=== PATIENT | female | born 1985 | race Caucasian/White ===

== ENCOUNTER 2018-04-29 20:20 | Day surgery (SDC) | payer BC ==
[2018-04-29 21:29] LABS: Bilirubin Negative (Negative); Blood, Urine Negative (Negative); Clarity CLEAR (Clear); Glucose, Urine (Dipstick) Negative (Negative); Leukocyte Negative (Negative); Nitrite Negative (Negative); Protein, Urine (Dipstick) Negative (Neg-Trace); Specific Gravity, Urine 1.008 (1.002-1.036); Urobilinogen 0.2 mg/dL (0.2-1.0)
[2018-04-29 21:31] LABS: Bacteria/HPF None Seen HPF (None Seen); Hyaline Casts/LPF 0-3 HYALINE CAST LPF (0-3 Hyaline); Pathc Cast-AUWi Flag 0.14 (0-2.49); Squamous Epithelial 0-3 HPF (0-3); WBC/HPF 0-3 HPF (0-3)
[2018-04-29 21:35] LABS: Amnisure Internal Control QC ACCEPTABLE (ACCEPTABLE); Amnisure Test No Membranes Rupture (No Rupture)
[2018-04-29 21:42] VITALS: BP 120/80; TEMP 98.5
--- NOTE | 2018-04-29 21:46 | PDOC.LDHP ---
Labor and Delivery H&P Chief complaint: contractions HPI: 33 y/o G1 at 34w2d, patient of Dr. Young, presents with low back pain, ctx, and ?lof after getting out of a pool today. Denies VB or decreased FM. ROS neg for HEENT, cv, pulm, gi, gu, neuro, psych, skin, musculoskeletal or constitutional symptoms other than mentioned above. OB History Details: First pregancy Current complications: none Past Medical History: None Current medications: pre- vitamins Previous surgical history: none Allergies/Adverse Reactions: Allergies Allergy/AdvReac Type Severity Reaction Status Date / Time Cephalosporins Allergy Verified 04/29/18 21:45 Social history: none - Physical Exam Vital signs reviewed and normal: yes General: NAD, resting Lungs: nonlabored breathing Abdomen: gravid Extremeties: no edema FHT: category 1 (140s, mod variability, + accels, no decels) [place] contractions every: irregular - Vaginal Exam cm dilated: 0 (unchanged after 1 hour. Ctx spaced out.) Effacement: 0% Station: -3 - Assessment 33 y/o G1 at 34w2d with no e/o PTL or SROM. UA wnl. status reassuring with reactive NST. - Plan -: D/c home with precautions. Advised to keep all appointments and continue daily activity counts.
[2018-04-29] MEDS ORDERED: Lactated Ringer's 1,000 ML IV SCH (22:00)
== END 2018-04-29 22:45 | disposition home or self-care (01) ==
LOC: L&D/OP 20:20
PROVIDERS: ATTEND Obstetrics & Gynecology
DX: O47.03 False labor before 37 completed weeks of gestation, third trimester (principal); Z3A.34 34 weeks gestation of pregnancy; Z88.8 Allergy status to other drugs, medicaments and biological substances
CPT/HCPCS: 81001; 84112; 87480; 87510; 87660; 99285

== ENCOUNTER 2018-06-12 17:00 | Inpatient (IN) | payer BC, OTHER ==
[2018-06-12 18:09] VITALS: BMI 29.3
[2018-06-12] MEDS ORDERED: HYDROcodone/Acetaminophen 5/325 mg Tablet PO PRN ×2 (18:47)
[2018-06-12] MEDS ORDERED: Diphenoxylate HCl/Atropine Tablet PO PRN ×2 (18:47)
[2018-06-12] MEDS ORDERED: NS / Oxytocin 40 units/1000ml 1,000 ML IV PRN (18:47)
[2018-06-12] MEDS ORDERED: Lidocaine 1% (PF) 30 ML VIAL SC PRN (18:47)
[2018-06-12] MEDS ORDERED: Ondansetron HCl/PF 4 MG/2 ML Vial IVP PRN (18:47)
[2018-06-12] MEDS ORDERED: Promethazine HCl 25 MG/ML VIAL IM PRN (18:47)
[2018-06-12] MEDS ORDERED: Misoprostol 200 MCG TAB PR PRN (18:47)
[2018-06-12] MEDS ORDERED: Ibuprofen 800 MG TAB PO PRN (18:47)
[2018-06-12] MEDS ORDERED: Zolpidem Tartrate 5 MG TAB PO PRN (18:47)
[2018-06-12] MEDS ORDERED: Carboprost 250 MCG/ML AMP IM PRN (18:47)
--- NOTE | 2018-06-12 18:54 | PDOC.LDHP ---
Labor and Delivery H&P Chief complaint: scheduled induction Current gestational age (weeks): 40 Due date: 06/12/18 Grav: 1 Para: 0 Current complications: gestational hypertension Abnormal US findings: No Current medications: none Allergies/Adverse Reactions: Allergies Allergy/AdvReac Type Severity Reaction Status Date / Time Cephalosporins Allergy Verified 04/29/18 21:45 - Physical Exam Vital signs reviewed and normal: yes General: NAD Heart: RRR Lungs: CTAB Abdomen: gravid Extremeties: no edema FHT: category 1 - Assessment L&D Assessment: medically indicated induction - Plan Plan: admit to L&D, labor augmentation if indicated
[2018-06-12 18:57] LABS: Hemoglobin 12.7 g/dL (12.0-16.0); Mean Corpuscular HGB CONC 33.8 g/dL (32.0-36.0); Mean Corpuscular Hemoglobin 30.4 pg (27.0-31.0); Mean Platelet Volume 9.2 fL (7.4-10.4); Platelet Count 198 thou/uL (130-400); RBC Distribution Width 12.8 % (11.5-14.5); Red Blood Cell (RBC) Count 4.18 mill/uL (4.20-5.40); White Blood Cell (WBC) Count 8.8 thou/uL (4.8-10.8)
[2018-06-12] MEDS ORDERED: NS w/ Oxytocin 10 units 500 ML IV SCH (19:00)
[2018-06-12] MEDS: Lactated Ringer's 1,000 ML IV SCH ×2 (19:17→20:15)
[2018-06-12 19:25] LABS: HBSAg Index 0.14 S/CO (0-0.99); Hep B Surf Ag Non-Reactive S/CO (NonReactive)
[2018-06-12 19:26] LABS: Syphilis Antibody Nonreactive (Nonreactive); Syphilis Antibody Index 0.02 S/CO (<1.00 Non-Reactive)
[2018-06-12] MEDS: Misoprostol 100 MCG TAB VAG SCH (21:03)
[2018-06-13] MEDS: Misoprostol 100 MCG TAB VAG SCH ×3 (00:59→14:55)
[2018-06-13] MEDS: Lactated Ringer's 1,000 ML IV SCH ×4 (11:20→20:37)
[2018-06-13] MEDS ORDERED: Butorphanol Tartrate 1 MG/ML VIAL ONE (16:01)
[2018-06-13] MEDS ORDERED: Morphine 10 MG/ML VIAL SLOW IVP PRN ×2 (17:21→17:23)
[2018-06-13] MEDS ORDERED: Butorphanol Tartrate 1 MG/ML VIAL SLOW IVP PRN (17:21)
[2018-06-13] MEDS: NS w/ Oxytocin 10 units 500 ML IV SCH (17:32)
[2018-06-13] MEDS ORDERED: Fentanyl 4 mcg/Bup 0.1% Cadd 100 ML ONE (18:06)
[2018-06-13] MEDS ORDERED: Ondansetron HCl/PF 4 MG/2 ML Vial IVP PRN (18:54)
[2018-06-13] MEDS ORDERED: Acetaminophen 325 MG TAB PO PRN (18:54)
[2018-06-13] MEDS ORDERED: Eucerin (Mineral Oil/Petrolatum,White) 30 gm Jar TOP PRN (18:54)
[2018-06-13] MEDS ORDERED: Naloxone HCl 0.4 mg/ml Vial IVP PRN ×2 (18:54)
[2018-06-13] MEDS ORDERED: ePHEDrine/0.9% NaCl/PF SYRINGE 50 mg/10 ml SLOW IVP PRN (18:54)
[2018-06-13] MEDS ORDERED: diphenhydrAMINE 50 MG/ML VIAL IVP PRN (18:54)
[2018-06-13] MEDS ORDERED: Lactated Ringer's 500 ML IV PRN (18:54)
[2018-06-13] MEDS ORDERED: Communication Order-Pharmacy FS SCH (19:00)
[2018-06-13] MEDS: Promethazine HCl 25 MG/ML VIAL IM PRN (21:09)
[2018-06-14] MEDS ORDERED: Fentanyl 4 mcg/Bup 0.1% Cadd 100 ML ONE ×3 (01:58→15:41)
[2018-06-14] MEDS: Fentanyl 4 mcg/Bupivacaine 0.1% Cassette 100 ML EPIDURAL SCH ×2 (02:03→15:44)
[2018-06-14] MEDS: Lactated Ringer's 1,000 ML IV SCH ×2 (05:13→13:55)
[2018-06-14] MEDS ORDERED: Dexamethasone 20 MG/5 ML VIAL ONE (11:30)
[2018-06-14] MEDS ORDERED: Lidocaine 2% MPF 10 ML AMP (For Epidural Use) ONE ×2 (11:30→21:32)
[2018-06-14] MEDS ORDERED: Ondansetron HCl/PF 4 MG/2 ML Vial ONE ×2 (11:30→21:32)
[2018-06-14] MEDS: Dextrose 5%-Lactated Ringers 1,000 ML IV SCH (14:35)
[2018-06-14] MEDS: NS w/ Oxytocin 10 units 500 ML IV SCH ×2 (14:35→16:24)
[2018-06-14] MEDS ORDERED: CEFAZOLIN/Water 2 GM/20 ML SYRINGE ONE (21:11)
[2018-06-14] MEDS ORDERED: Bicitra 30 ML UDCUP ONE (21:11)
[2018-06-14] MEDS ORDERED: Clindamycin/D5W 900 mg/50 ml Premix Bag ONE (21:21)
[2018-06-14] MEDS ORDERED: Midazolam HCl 2 mg/2 ml Vial ONE ×3 (21:31→22:51)
[2018-06-14] MEDS ORDERED: Ketorolac Tromethamine 30 MG/ML VIAL ONE (21:32)
[2018-06-14] MEDS ORDERED: Oxytocin 10 UNITS/ML VIAL ONE (21:32)
[2018-06-14] MEDS ORDERED: diphenhydrAMINE 50 MG/ML VIAL ONE (21:32)
[2018-06-14] MEDS ORDERED: Dexamethasone 4 mg/ml Vial ONE (21:32)
[2018-06-14] MEDS ORDERED: Clindamycin/D5W 900 MG in Premix Bag 1 BAG IVPB ONE (21:33)
[2018-06-14] MEDS ORDERED: Vancomycin HCl 1 GM in Premix Bag 1 BAG IVPB ONE (21:34)
[2018-06-14] MEDS ORDERED: Ketamine 50 MG/ML VIAL ONE (21:54)
[2018-06-14] MEDS ORDERED: Fentanyl 100 MCG/2 ML VIAL ONE (22:07)
[2018-06-14] MEDS ORDERED: Morphine PF 1 MG/ML SYR ONE (22:41)
[2018-06-14] MEDS ORDERED: Promethazine HCl 25 MG/ML VIAL ONE (23:35)
[2018-06-14] MEDS: Promethazine HCl 25 MG/ML VIAL IM PRN (23:37)
[2018-06-14] MEDS ORDERED: Promethazine HCl 25 MG/ML VIAL IM PRN (23:42)
[2018-06-14] MEDS ORDERED: Eucerin (Mineral Oil/Petrolatum,White) 30 gm Jar TOP PRN (23:42)
[2018-06-14] MEDS ORDERED: Meperidine HCl/PF 25 MG/ML VIAL SLOW IVP PRN (23:42)
[2018-06-14] MEDS ORDERED: L&D-Morphine 4 MG/ML VIAL SLOW IVP PRN (23:42)
[2018-06-14] MEDS ORDERED: Promethazine HCl 25 MG SUPP PR PRN (23:42)
[2018-06-14] MEDS ORDERED: HYDROmorphone 2 MG/ML VIAL SLOW IVP PRN (23:42)
[2018-06-14] MEDS ORDERED: Naloxone HCl 0.4 mg/ml Vial IV PRN (23:42)
[2018-06-14] MEDS ORDERED: Naloxone HCl 0.4 mg/ml Vial IVP PRN ×2 (23:42)
[2018-06-14] MEDS ORDERED: Ketorolac Tromethamine 30 MG/ML VIAL IVP PRN (23:42)
[2018-06-14] MEDS ORDERED: diphenhydrAMINE 50 MG/ML VIAL IVP PRN (23:42)
[2018-06-14] MEDS ORDERED: Ondansetron HCl/PF 4 MG/2 ML Vial IVP PRN ×2 (23:42)
[2018-06-14] MEDS ORDERED: Communication Order-Pharmacy FS SCH (23:45)
[2018-06-15 00:12] LABS: Hemoglobin 9.4 g/dL (12.0-16.0); Mean Corpuscular HGB CONC 33.2 g/dL (32.0-36.0); Mean Corpuscular Hemoglobin 30.2 pg (27.0-31.0); Mean Corpuscular Volume 91.2 fL (78.0-98.0); Mean Platelet Volume 8.4 fL (7.4-10.4); Platelet Count 160 thou/uL (130-400); RBC Distribution Width 12.9 % (11.5-14.5); Red Blood Cell (RBC) Count 3.09 mill/uL (4.20-5.40); White Blood Cell (WBC) Count 18.7 thou/uL (4.8-10.8)
[2018-06-15 00:17] LABS: INR-International Normal Ratio 1.1; Prothrombin Time 14.1 SEC (12.0-14.7)
--- NOTE | 2018-06-15 00:31 | PDOC.LDPN ---
Labor & Delivery Progress Note - Subjective Subjective: comfortable - Objective Vital signs reviewed and normal: yes General: NAD, resting Uterine fundus: non tender -: Patient has received Cook/s balloon placement by Dr. Aldridge earlier this afternoon. She complete Cytotec 25 mcg vaginally prior to that with limited change in her cervical exam. At thios time, patient is comfortable and wishes to continue with induction.
--- NOTE | 2018-06-15 00:33 | PDOC.LDPN ---
Labor & Delivery Progress Note - Subjective Subjective: comfortable - Objective Vital signs reviewed and normal: yes General: NAD Uterine fundus: non tender Dilation: 3-4cm Effacement: 75% Station: -2 AROM: clear fluid Plan: continue plan of care (Amniotomy with clear fluid. Epidural bolused and patient appears more comfortable.)
--- NOTE | 2018-06-15 00:37 | PDOC.LDPN ---
Labor & Delivery Progress Note - Subjective Subjective: comfortable - Objective Vital signs reviewed and normal: yes General: NAD Uterine fundus: non tender Dilation: 4-5cm/80-90%/-1 FHT: category 1 AROM: clear fluid IUPC placed: yes -: Patient has made minimal change since earlier today, and is now requesting C- Section. I feel that this baby may be too big to fit her pelvis and that a diagnosis of CPD is most likely. We have tried all interventions available to help result in but at this time the patient has been consented to proceed with primary for CPD.
--- NOTE | 2018-06-15 00:42 | PDOC.PP ---
Post Progress Note Post Day #: 1 Subjective: Patient is resting, and breast feeding. She is tachycardic and has a QBL of 2600 ML, with also a notable drop in blood pressure. Although my own estimate of blood loss and account of bleeding would have me estimate approximately 1500ml, a recalculation of the math used in the OR for QBL and vital signs do suggest a more significant hemorrhage. As such, a CBC has been performed along with PT/PTT/INR (Hb/Hct 05/29). 2 units of pRBC have been ordered to be transfused. We will continue to monitor the patient closely. Next CBC is at approximately 500am. Weight Weight 193 lb - Physical Examination General: NAD Cardiovascular: no m/r/g Respiratory: clear to auscultation bilaterally Abdominal: no distention, appropriately TTP Extremities: negative homans (B) Skin: CS incision dry & intact Neurological: no gross focal deficits Psychiatric: A&Ox3 Result Diagrams: 06/15/18 00:03 Additional Labs: Post Labs Blood Type O POSITIVE 06/12/18 18:10 Hep Bs Antigen Non-Reactive S/CO (NonReactive) 06/12/18 18:21
[2018-06-15] MEDS ORDERED: Lanolin Ointment 7 GM TUBE TOP PRN (00:48)
[2018-06-15] MEDS ORDERED: Ondansetron HCl/PF 4 MG/2 ML Vial IVP PRN (00:48)
[2018-06-15] MEDS ORDERED: NS / Oxytocin 40 units/1000ml 1,000 ML IV SCH (00:48)
[2018-06-15] MEDS ORDERED: Bisacodyl 10 MG SUPP PR PRN (00:48)
[2018-06-15] MEDS ORDERED: Promethazine HCl 25 MG/ML VIAL IM PRN (00:48)
[2018-06-15] MEDS ORDERED: diphenhydrAMINE 25 MG CAP PO PRN (00:48)
[2018-06-15 08:53] LABS: #Lymphocytes 0.7 thou/uL (1.20-3.40); #Monocytes 0.8 thou/uL (0.11-0.59); #Neutrophils 13.6 thou/uL (1.40-6.50); %Basophils 0.2 % (0.0-1.0); %Eosinophils 0.2 % (0.0-10.0); %Lymphocytes 4.7 % (21.0-51.0); %Monocytes 5.3 % (0.0-10.0); %Neutrophils 89.6 % (42.0-75.0); Hemoglobin 9.2 g/dL (12.0-16.0); Mean Corpuscular HGB CONC 33.7 g/dL (32.0-36.0); Mean Corpuscular Hemoglobin 29.6 pg (27.0-31.0); Mean Corpuscular Volume 87.9 fL (78.0-98.0); Mean Platelet Volume 8.9 fL (7.4-10.4); Platelet Count 148 thou/uL (130-400); RBC Distribution Width 14.9 % (11.5-14.5); Red Blood Cell (RBC) Count 3.11 mill/uL (4.20-5.40); White Blood Cell (WBC) Count 15.2 thou/uL (4.8-10.8)
[2018-06-15] MEDS ORDERED: Varicella virus, LIVE 0.5 ML VIAL SC ONE (09:00)
[2018-06-15] MEDS ORDERED: Adacel (T-DAP) 0.5 ML VIAL IM ONE (09:00)
[2018-06-15] MEDS ORDERED: Measles/Mumps/Rubella 10 MCG/0.5 ML VIAL SC ONE (09:00)
[2018-06-15] MEDS: HYDROcodone/Acetaminophen 5/325 mg Tablet PO PRN ×3 (10:58→22:23)
[2018-06-15] MEDS: Docusate Calcium (SURFAK) 240 MG CAP PO SCH ×2 (10:58→21:19)
[2018-06-15] MEDS ORDERED: HYDROcodone/Acetaminophen 5/325 mg Tablet PO PRN (12:00)
[2018-06-15] MEDS: Clindamycin/D5W 900 MG in Premix Bag 1 BAG IVPB SCH ×2 (12:31→14:34)
[2018-06-15] MEDS: Dextrose 5%-Lactated Ringers 1,000 ML IV SCH (12:33)
[2018-06-15] MEDS: Misoprostol 100 MCG TAB VAG SCH (12:39)
[2018-06-15 13:48] LABS: #Lymphocytes 1.3 thou/uL (1.20-3.40); #Monocytes 0.7 thou/uL (0.11-0.59); #Neutrophils 11.4 thou/uL (1.40-6.50); %Basophils 0.2 % (0.0-1.0); %Eosinophils 0.1 % (0.0-10.0); %Lymphocytes 9.5 % (21.0-51.0); %Monocytes 5.5 % (0.0-10.0); %Neutrophils 84.7 % (42.0-75.0); Hemoglobin 9.6 g/dL (12.0-16.0); Mean Corpuscular HGB CONC 33.6 g/dL (32.0-36.0); Mean Corpuscular Hemoglobin 29.6 pg (27.0-31.0); Mean Corpuscular Volume 87.9 fL (78.0-98.0); Mean Platelet Volume 8.7 fL (7.4-10.4); Platelet Count 160 thou/uL (130-400); RBC Distribution Width 15.1 % (11.5-14.5); Red Blood Cell (RBC) Count 3.26 mill/uL (4.20-5.40); White Blood Cell (WBC) Count 13.5 thou/uL (4.8-10.8)
--- NOTE | 2018-06-15 16:08 | PDOC.PP ---
Post Progress Note Post Day #: 1 PO intake tolerated: yes Ambulation: yes Vital Signs (12 hours) Temp Pulse Resp BP 06/15/18 11:35 98.8 F 113 H 16 126/68 Weight Weight 193 lb - Physical Examination General: NAD Cardiovascular: no m/r/g, RRR Respiratory: clear to auscultation bilaterally Abdominal: no distention, appropriately TTP Extremities: negative homans (B) Skin: CS incision dry & intact, no rash Neurological: no gross focal deficits Psychiatric: A&Ox3, normal affect Result Diagrams: 06/15/18 13:38 Additional Labs: Post Labs Blood Type O POSITIVE 06/12/18 18:10 Hep Bs Antigen Non-Reactive S/CO (NonReactive) 06/12/18 18:21
--- NOTE | 2018-06-15 20:45 | OP ---
DATE OF PROCEDURE: 06/14/2018 PREOPERATIVE DIAGNOSES: Intrauterine at 40 weeks with gestational hypertension and failed medical induction of labor with suspected cephalopelvic disproportion. POSTOPERATIVE DIAGNOSES: Intrauterine at 40 weeks with gestational hypertension and failed medical induction of labor with suspected cephalopelvic disproportion. PROCEDURES: 1. Primary low transverse section using a Pfannenstiel skin incision. 2. Cord blood collection as well as umbilical cord collection at the patient's request. SURGEON: Richard Young M.D. COOKY MACHINE OPERATOR: Jalen Jiménez M.D. ANESTHESIOLOGIST: Edy Velazquez M.D. with BONDING AGENT, Yamilex Ramon. REACH LIFT TRUCK DRIVER: Dr. Makenna Ding. FINDINGS: Viable female infant weighing 4000 grams or 8 pounds 13 ounces with Apgars 8 and 9. QUANTITATIVE BLOOD LOSS: Reported as 2600 mL. COMPLICATIONS: Intraoperative hemorrhage. DETAILS OF THE PROCEDURE: The patient was consented and taken back to the operating room where spina l anesthesia was found to be adequate. She was then prepped and draped in the normal sterile fashion . A time out was performed by the entire operative team. The incision was then marked with a marking pen tested using sharp pickups. An incision was then made with a scalpel. The incision was carried through the adipose tissue down to the underlying rectus fascia using both sharp dissection as well as cautery. Once the fascia was identified, it was incised in the midline and then the fascial incis ion was carried through in both lateral directions using sharp as well as cautery dissection techniqu es. Next, the superior aspect of the rectus fascia was grasped with 2 Jazzy clamps which was tented up and the rectus muscles were dissected off using blunt dissection as well as cautery dissection. Similarly, the inferior aspect of the fascial incision was grasped with 2 Jazzy clamps, tented up an d the rectus muscles were dissected off bluntly as well as sharply. Next, the rectus muscles were se parated in the midline and the peritoneum identified. The peritoneum was then carefully grasped with two hemostats and entered sharply. The peritoneal incision was extended superiorly and inferiorly a nd bladder blade was placed in the lower abdomen. At this point, the uterus was identified and the b ladder flap was then developed using pickups with teeth as well as Metzenbaum scissors in both latera l directions. The bladder flap was then dissected downwards using the gamma operator's finger as well as M etzenbaum scissors. The bladder blade was replaced. The lower uterine segment was then identified a nd entered sharply using a clean scalpel. The uterine incision was then dissected downwards until th in layer of muscle remained and this was entered bluntly using a hemostat to avoid any injury to the baby. The uterine incision was then stretched using two fingers in both lateral directions. An amniotomy was performed artificially using a hemostat and the baby was delivered using fundal pres sure in a gentle fashion. Once out, the baby's mouth and nose were bulb suctioned, cord clamped and cut, and the baby was handed to waiting attendants. Next, the uterus was exteriorized, cleared of al l clots and debris and the uterine incision was repaired with #1 Monocryl in a running locking fashio n. A second suture of the same type was used to obtain complete hemostasis at the uterine incision. The bladder flap was reapproximated using 3-0 Monocryl. Next, patient's left and right adnexa were inspected and appeared to be within normal limits. The posterior cul-de-sac was blotted dry and hemo stasis assured. One more look at the uterine incision demonstrated hemostasis. Next, the uterus was replaced back within the abdomen. The peritoneum was reapproximated using 2-0 Monocryl without diff iculty. The rectus muscles were then allowed to come back together and 0 chromic was used to aid in reapproximation of the muscle as necessary. The rectus fascia was then reapproximated in a running f ashion using 0 Vicryl suture. The adipose tissue was then examined and appeared to be well approxima mag without any obvious separations. Finally, the skin was reapproximated with 3-0 Monocryl on a [place] th needle without difficulty and Dermabond adhesive was applied to the skin. Once the glue was dry, the drapes were removed and the patient was transferred to an ambulatory bed where she was taken to [facility] awake and in stable condition. Sponge, lap, and needle counts were correct x3. ADDENDUM: The patient experienced above average bleeding following separation of the placenta. This lasted for several minutes, although the uterus quickly firmed up and no further atony was identifie d. The uterine closure was made difficult by several perforating vessels that required additional phipps turing to control; however, no single problem was responsible for bleeding and rather a combination o f all factors resulted in the intraoperative hemorrhage, which to all 3 surgeons seemed quite a bit l ess than the quantitative blood loss reported at the end. After further analyzing blood loss and the math involved, I believe the quantitative blood loss appears to be more or less accurate even though the surgeon's perceptions may have underestimated the actual blood lost in this case. The patient h ad a CBC ran immediately following surgery along with coag studies including a PT, PTT, INR. The pat ient did appear to be somewhat tachycardic with a noted decrease in blood pressure and as such, we ty ped and crossed her for 2 units immediately following the section and she was transfused 2 u nits of packed red blood cells starting in recovery. Additional blood counts were ordered approximat charles 5 hours later.
[2018-06-15] MEDS: Ibuprofen 800 MG TAB PO SCH (21:19)
[2018-06-15] MEDS ORDERED: Sodium Chloride 0.9% 10 ML ONE (23:54)
[2018-06-16] MEDS: HYDROcodone/Acetaminophen 5/325 mg Tablet PO PRN ×3 (03:49→12:02)
[2018-06-16] MEDS: Ibuprofen 800 MG TAB PO SCH ×3 (06:19→21:49)
[2018-06-16] MEDS: Docusate Calcium (SURFAK) 240 MG CAP PO SCH ×2 (08:18→21:49)
[2018-06-16] MEDS ORDERED: Sodium Chloride 0.9% 10 ML ONE ×2 (10:06→14:01)
[2018-06-16] MEDS ORDERED: HYDROcodone/Acetaminophen 7.5/325 mg Tablet PO PRN (15:46)
[2018-06-16] MEDS: HYDROcodone/Acetaminophen 7.5/325 mg Tablet PO PRN ×2 (15:59→20:15)
[2018-06-16] MEDS: Simethicone Chewable 80 MG TAB PO PRN (17:41)
[2018-06-16] MEDS: Zolpidem Tartrate 5 MG TAB PO PRN (21:52)
--- NOTE | 2018-06-16 22:34 | PDOC.PP ---
Post Progress Note Post Day #: 2 PO intake tolerated: yes Flatus: yes Ambulation: yes Vital Signs (12 hours) Temp Pulse Resp BP 06/16/18 17:22 98.3 F 92 20 143/65 H 06/16/18 11:27 98.2 F 92 20 129/72 Weight Weight 193 lb - Physical Examination General: NAD Respiratory: clear to auscultation bilaterally Abdominal: + bowel sounds, lochia Extremities: negative homans (B) Skin: CS incision dry & intact, no rash Neurological: no gross focal deficits Psychiatric: A&Ox3 Result Diagrams: 06/15/18 13:38 Additional Labs: Post Labs Blood Type O POSITIVE 06/12/18 18:10 Hep Bs Antigen Non-Reactive S/CO (NonReactive) 06/12/18 18:21 - Assessment/Plan Patient doing very well. Possible DC to home tomorrow. [place] increased to 7.5/ 325.
[2018-06-17] MEDS: HYDROcodone/Acetaminophen 7.5/325 mg Tablet PO PRN ×5 (02:07→22:05)
[2018-06-17] MEDS: Ibuprofen 800 MG TAB PO SCH ×3 (05:57→22:04)
[2018-06-17] MEDS: Docusate Calcium (SURFAK) 240 MG CAP PO SCH ×2 (09:38→22:04)
[2018-06-17] MEDS: Simethicone Chewable 80 MG TAB PO PRN ×2 (09:38→13:52)
--- NOTE | 2018-06-17 20:21 | PDOC.PP ---
Post Progress Note Post Day #: 3 PO intake tolerated: yes Flatus: yes Ambulation: yes Weight Weight 193 lb - Physical Examination General: NAD Cardiovascular: no m/r/g, RRR Respiratory: clear to auscultation bilaterally, non-labored breathing Abdominal: + bowel sounds, no distention, appropriately TTP Extremities: negative homans (B) Skin: CS incision dry & intact, no rash Neurological: no gross focal deficits Psychiatric: A&Ox3, normal affect (DC to home planned for tomorrow.) Result Diagrams: 06/15/18 13:38 Additional Labs: Post Labs Blood Type O POSITIVE 06/12/18 18:10 Hep Bs Antigen Non-Reactive S/CO (NonReactive) 06/12/18 18:21
[2018-06-17] MEDS: Zolpidem Tartrate 5 MG TAB PO PRN (22:04)
[2018-06-18] MEDS: Ibuprofen 800 MG TAB PO SCH (06:18)
[2018-06-18 09:16] VITALS: BP 135/86; TEMP 98.3
[2018-06-18] MEDS: HYDROcodone/Acetaminophen 7.5/325 mg Tablet PO PRN (09:55)
[2018-06-18] MEDS: Docusate Calcium (SURFAK) 240 MG CAP PO SCH (09:55)
== END 2018-06-18 13:05 | disposition home or self-care (01) | DRG 787 ==
LOC: L&D 17:53 → 3SW 06-15 11:35
PROVIDERS: ADMIT Obstetrics & Gynecology; ATTEND Obstetrics & Gynecology
PROC: 10D00Z1 Extraction of Products of Conception, Low, Open Approach (ICD-10-PCS; principal; 2018-06-12)
PROC: 30233N1 Transfusion of Nonautologous Red Blood Cells into Peripheral Vein, Percutaneous Approach (ICD-10-PCS; 2018-06-12)
DX: O62.0 Primary inadequate contractions (principal); O72.1 Other immediate postpartum hemorrhage; O13.4 Gestational [pregnancy-induced] hypertension without significant proteinuria, complicating childbirth; Z3A.40 40 weeks gestation of pregnancy; Z37.0 Single live birth
CPT/HCPCS: 36415; 36430; 51702; 85027; 85610; 85730; 86780; 86850; 86900; 86901; 87340; C1726; J0595; J1100; J1200; J1885; J2001; J2250; J2270; J2274; J2405; J2550; J2590; J3010; J3370; J3490; P9016